=== PATIENT | female | born 1995 ===

== ENCOUNTER 2017-05-17 21:05 | Emergency (ER) | payer BC, OTHER ==
[2017-05-17 21:23] VITALS: TEMP 99.7; O2SAT 99
--- NOTE | 2017-05-17 22:18 | ED PDOC ---
Arrival/HPI - General Chief Complaint: Cough, Cold, Congestion Time Seen by Provider: 05/17/17 21:59 Historian: Patient - History of Present Illness Narrative History of Present Illness (Text): 05/17/17 22:14 Ginger Nettles is a 21 year old female who presents to the ED complaining of cold-like symptoms. Patient states she has been experiencing cold-like symptoms , cough, and congestion for the past few days. Patient notes she had an episode of epistaxis prior to arrival, which resolved on its own. Patient denies any fever, chills, chest pain, shortness of breath, nausea, vomiting, diarrhea, urinary symptoms, back pain, neck pain, headache, dizziness, or any other complaints. Symptom Onset: Gradual Symptom Course: Unchanged Activities at Onset: Light Context: Home Past Medical History - Provider Review Nursing Documentation Reviewed: Yes - Infectious Disease Hx of Infectious Diseases: None - Psychiatric Hx Substance Use: No - Surgical History Hx Tonsillectomy: Yes - Anesthesia Hx Anesthesia: No Family/Social History - Physician Review Nursing Documentation Reviewed: Yes Family/Social History: Unknown Family HX Smoking Status: Never Smoked Hx Alcohol Use: No Hx Substance Use: No Allergies/Home Meds Allergies/Adverse Reactions: Allergies No Known Allergies Allergy (Verified 05/29/16 13:25) Review of Systems - Physician Review All systems were reviewed & negative as marked: Yes - Review of Systems Constitutional: Normal. absent: Fevers Eyes: Normal ENT: Epistaxis, Sinus Congestion, Other (+cold-like symptoms) Respiratory: Cough Cardiovascular: Normal. absent: Chest Pain Gastrointestinal: Normal. absent: Abdominal Pain, Diarrhea, Nausea, Vomiting Genitourinary Female: Normal. absent: Dysuria, Frequency, Hematuria, Urine Output Changes Musculoskeletal: Normal. absent: Back Pain, Neck Pain Skin: Normal. absent: Rash Neurological: Normal. absent: Headache, Dizziness Endocrine: Normal Hemo/Lymphatic: Normal Psychiatric: Normal Physical Exam Vital Signs Reviewed: Yes Vital Signs Temp Pulse Resp BP Pulse Ox 05/17/17 21:21 99.7 F H 105 H 20 125/79 99 Temperature: Afebrile Blood Pressure: Normal Pulse: Regular Respiratory Rate: Normal Appearance: Positive for: Well-Appearing, Non-Toxic, Comfortable Pain Distress: None Mental Status: Positive for: Alert and Oriented X 3 - Systems Exam Head: Present: Atraumatic, Normocephalic Pupils: Present: PERRL Extroacular Muscles: Present: EOMI Conjunctiva: Present: Normal Ears: Present: Normal, NORMAL TM, Normal Canal. No: Erythema, TM Bulging, Fluid , TM Perf Mouth: Present: Moist Mucous Membranes Pharnyx: Present: Normal. No: ERYTHEMA, EXUDATE, TONSILS ENLARGED, Peritonsilar Swelling, Uvular Deviation, Muffled/Hoarse Voice, Strider, Soft Palate/Uvular Edema Nose (External): Present: Atraumatic Nose (Internal): Present: No Active Bleeding (Dry blood in left naris), Rhinorrhea Neck: Present: Normal Range of Motion. No: Meningeal Signs, MIDLINE TENDERNESS , Paraspinal Tenderness Respiratory/Chest: Present: Clear to Auscultation, Good Air Exchange. No: Respiratory Distress, Accessory Muscle Use Cardiovascular: Present: Regular Rate and Rhythm, Normal S1, S2. No: Murmurs Abdomen: Present: Normal Bowel Sounds. No: Tenderness, Distention, Peritoneal Signs Back: Present: Normal Inspection. No: CVA Tenderness, Midline Tenderness, Paraspinal Tenderness Upper Extremity: Present: Normal Inspection. No: Cyanosis, Edema Lower Extremity: Present: Normal Inspection. No: Edema Neurological: Present: GCS=15, CN II-XII Intact, Speech Normal, Motor Func Grossly Intact, Normal Sensory Function, Normal Cerebellar Funct Skin: Present: Warm, Dry, Normal Color. No: Rashes Psychiatric: Present: Alert, Oriented x 3, Normal Insight, Normal Concentration Medical Decision Making ED Course and Treatment: 05/17/17 22:14 Impression: 21 year old female complaining of cold-like symptoms, cough, and congestion for the past few days, epistaxis today Differential Diagnosis included but are not limited to: influenza vs. viral syndrome vs. URI vs. bronchitis vs. epistaxis Plan: -- Rapid influenza -- Reassess and disposition Progress Notes: 05/17/17 23:04 On re-evaluation, patient feels better and is in no acute distress. I have discussed the results and plan with the patient, who expresses understanding. Patient in agreement with plan to be discharged home. Patient is stable for discharge. Patient was instructed to follow up with physician or return if symptoms worsen or new concerning symptoms arise. - Lab Interpretations Lab Results: Lab Results 05/17/17 22:14: Influenza Typ A,B (EIA) Negative for flu a/b I have reviewed the lab results: Yes - Scribe Statement The provider has reviewed the documentation as recorded by the Svetlana Rousseau Provider Scribe Attestation: All medical record entries made by the Scribe were at my direction and personally dictated by me. I have reviewed the chart and agree that the record accurately reflects my personal performance of the history, physical exam, medical decision making, and the department course for this patient. I have also personally directed, reviewed, and agree with the discharge instructions and disposition. Disposition/Present on Arrival - Present on Arrival Any Indicators Present on Arrival: No History of DVT/PE: No History of Uncontrolled Diabetes: No Urinary Catheter: No History of Decub. Ulcer: No History Surgical Site Infection Following: None - Disposition Have Diagnosis and Disposition been Completed?: Yes Diagnosis: Bronchitis, URI (upper respiratory infection), Epistaxis Disposition: HOME/ ROUTINE Disposition Time: 22:59 Patient Plan: Discharge Patient Problems: Current Active Problems Problem Status Onset Bronchitis Acute Epistaxis Acute URI (upper respiratory infection) Acute Condition: GOOD Discharge Instructions (ExitCare): Nosebleed (ED), Upper Respiratory Infection (ED), Acute Bronchitis (ED) Additional Instructions: Take meds as prescribed/follow up with your doctor this week Prescriptions: Fexofenadine/Pseudoephedrine [Dana-D 12 Hour Tablet] 1 each PO BID PRN #24 tab.er.12h PRN Reason: Nasal Congestion Azithromycin [Zithromax] 250 mg PO DAILY #6 tab Referrals: Carlo Werner MD [Primary Care Provider] - Follow up with primary Forms: [employer] (Tajik), WORK NOTE
[2017-05-17 23:42] VITALS: BP 124/87; PULSE 90; RESP 16
== END 2017-05-17 23:05 | disposition home or self-care (01) ==
LOC: ED 21:05
DX: J40 Bronchitis, not specified as acute or chronic (principal); R04.0 Epistaxis; J06.9 Acute upper respiratory infection, unspecified

== ENCOUNTER 2018-04-29 12:28 | Emergency (ER) | payer BC ==
--- NOTE | 2018-04-29 13:21 | ED PDOC ---
Arrival/HPI - General Chief Complaint: Cough, Cold, Congestion Time Seen by Provider: 04/29/18 12:29 Historian: Patient - History of Present Illness Narrative History of Present Illness (Text): 04/29/18 13:15 22yo female with no pmhx who present with complaint of greenish productive cough for over a week. States she was seen at last month for similar cough and was given oral antitussive. States the cough stopped and started again. States she took the oral antitussive without relieve. Denies fever, chills, SOB, chest pain, sick contact, travel, night sweat, any other complaint Past Medical History - Provider Review Nursing Documentation Reviewed: Yes - Infectious Disease Hx of Infectious Diseases: None - Reproductive Menopause: No - Psychiatric Hx Substance Use: No - Surgical History Hx Tonsillectomy: Yes Other/Comment: TONSIL SURGERY - Anesthesia Hx Anesthesia: No Family/Social History - Physician Review Nursing Documentation Reviewed: Yes Family/Social History: Unknown Family HX Smoking Status: Never Smoked Hx Alcohol Use: No Hx Substance Use: No Allergies/Home Meds Allergies/Adverse Reactions: Allergies No Known Allergies Allergy (Verified 05/29/16 13:25) Review of Systems - Physician Review All systems were reviewed & negative as marked: Yes - Review of Systems Constitutional: Normal Eyes: Normal ENT: Normal Respiratory: Cough Cardiovascular: Normal Gastrointestinal: Normal Genitourinary Female: Normal Musculoskeletal: Normal Skin: Normal Neurological: Normal Endocrine: Normal Hemo/Lymphatic: Normal Psychiatric: Normal Physical Exam Vital Signs Reviewed: Yes Vital Signs Temp Pulse Resp BP Pulse Ox 04/29/18 12:35 98.6 F 75 20 112/74 98 Temperature: Afebrile Blood Pressure: Normal Pulse: Regular Respiratory Rate: Normal Appearance: Positive for: Well-Appearing, Non-Toxic, Comfortable Pain Distress: None Mental Status: Positive for: Alert and Oriented X 3 - Systems Exam Head: Present: Atraumatic, Normocephalic Pupils: Present: PERRL Extroacular Muscles: Present: EOMI Conjunctiva: Present: Normal Mouth: Present: Moist Mucous Membranes Neck: Present: Normal Range of Motion Respiratory/Chest: Present: Clear to Auscultation, Good Air Exchange. No: Respiratory Distress, Accessory Muscle Use, Wheezes, Decreased Breath Sounds, Rales, Retracting, Rhonchi Cardiovascular: Present: Regular Rate and Rhythm, Normal S1, S2. No: Murmurs Abdomen: No: Tenderness, Distention, Peritoneal Signs Back: Present: Normal Inspection Upper Extremity: Present: Normal Inspection. No: Cyanosis, Edema Lower Extremity: Present: Normal Inspection. No: Edema Neurological: Present: GCS=15, CN II-XII Intact, Speech Normal Skin: Present: Warm, Dry, Normal Color. No: Rashes Psychiatric: Present: Alert, Oriented x 3, Normal Insight, Normal Concentration Medical Decision Making ED Course and Treatment: 04/29/18 18:50 22yo female in ED for greenish productive cough x one week. she was not hypoix and in no distress in ED. Hemodynamically stable Chest xray IMPRESSION: No active disease. She was treated with antitussive and DC home with Promethazine. They was no indication of abx. - RAD Interpretation Radiology Orders: 04/29/18 12:58 CHEST TWO VIEWS (PA/LAT) [RAD] Stat Disposition/Present on Arrival - Present on Arrival Any Indicators Present on Arrival: No History of DVT/PE: No History of Uncontrolled Diabetes: No Urinary Catheter: No History of Decub. Ulcer: No History Surgical Site Infection Following: None - Disposition Have Diagnosis and Disposition been Completed?: Yes Diagnosis: Cough Disposition: HOME/ ROUTINE Disposition Time: 14:30 Patient Plan: Discharge Condition: STABLE Discharge Instructions (ExitCare): Cough in Adults Additional Instructions: Follow up with your doctor Return to ED for any worsening symptoms Prescriptions: RX: Promethazine [Phenergan Syrup] 6.25 mg PO Q6 #100 cup Referrals: PCPHEMALATHA [Primary Care Provider] - Follow up with primary Yolanda Starkey MD [Medical Doctor] - Follow up with primary Forms: [employer] (Armenian)
--- NOTE | 2018-04-29 14:08 | RAD ---
Date of service: 04/29/2018 HISTORY: cough COMPARISON: 05/29/2016 TECHNIQUE: Chest PA and lateral FINDINGS: LUNGS: No active pulmonary disease. PLEURA: No significant pleural effusion identified. No pneumothorax apparent. CARDIOVASCULAR: No aortic atherosclerotic calcification present. Normal cardiac size. No pulmonary vascular congestion. OSSEOUS STRUCTURES: No significant abnormalities. VISUALIZED UPPER ABDOMEN: Normal. OTHER FINDINGS: None. IMPRESSION: No active disease.
[2018-04-29] MEDS ORDERED: guaiFENesin DM 100 mg-10 mg/5 ml UD PO STA (14:25)
[2018-04-29 14:58] VITALS: BP 120/84; PULSE 74; RESP 18; TEMP 98; O2SAT 100
== END 2018-04-29 15:00 | disposition home or self-care (01) ==
LOC: ED 12:28
DX: R05 Cough (principal)